=== PATIENT | male | born 1985 | race Two or more races ===

== ENCOUNTER 2022-01-26 03:05 | Emergency (ER) | payer SELFPAY ==
[~2022-01-26] VITALS: Ht 172.7 cm; Wt 77.2 kg
[2022-01-26 03:26] VITALS: BP 136/77
[2022-01-26 05:44] LABS: BASOPHILS % 1.2 % (0.0-2.0); EOSINOPHILS % 6.4 % (0.0-5.0); HEMATOCRIT. 38.7 % (42.0-52.0); LYMPHOCYTES % 35.3 % (20.0-50.0); MEAN CORPUSCULAR HEMOGLOBIN 28.9 pg (28.0-32.0); MEAN CORPUSCULAR VOLUME 86.1 fL (80.0-94.0); MEAN PLATELET VOLUME 9.5 fl (7.4-10.4); MONOCYTES % 10.1 % (2.0-8.0); PLATELET 231 x1000/uL (130-400); RED CELL DISTRIBUTION WIDTH 15.6 % (11.6-14.6)
[2022-01-26 05:52] LABS: CHLORIDE 106 mEq/L (98-107)
[2022-01-26 05:59] LABS: ETHANOL BLOOD < 10 mg/dL
== END 2022-01-26 06:15 | disposition left against medical advice (07) ==
LOC: ER 03:05
DX: F15.150 Other stimulant abuse with stimulant-induced psychotic disorder with delusions (principal); F15.182 Other stimulant abuse with stimulant-induced sleep disorder; E86.0 Dehydration; F20.9 Schizophrenia, unspecified
CPT/HCPCS: 36415; 80053; 80320; 85025; 99283; G0480